=== PATIENT | female | born 1975 | race Caucasian/White ===

== ENCOUNTER 2018-01-16 08:16 | Day surgery (SDC) | payer OTHER ==
[2018-01-16] VITALS (26 sets, daily range): BP systolic 92–121; BP diastolic 48–84; Ht 160 cm; Wt 56.8 kg
[~2018-01-16] VITALS: Ht 160 cm; Wt 56.8 kg
--- NOTE | ~2018-01-16 | OP ---
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 POSTOPERATIVE DIAGNOSES: Disc herniation at C6-7 with C7 radiculopathy bilaterally. PROCEDURE: Anterior cervical discectomy and fusion with PEEK interbody cage, anterior cervical plate and screws. PRIMARY CARE DOCTOR: Dr. Iain Herrera in [place], [place]. DESCRIPTION AND TECHNIQUE: After induction of general endotracheal anesthesia, the patient was positioned supine on the operating table. Neck was prepped and draped in usual sterile fashion. Fluoroscopic x-ray and freer dissector localized the C6-C7 interspace. Following this, an infiltration of 1:100,000 epinephrine and 1% lidocaine was infiltrated in the subcutaneous tissues. A transverse skin incision was carried out from the midline to the sternocleidomastoid muscle. The platysma was divided with Bovie cautery and then using blunt and sharp dissection with Metzenbaum scissors, I proceeded in the avascular plane medial to the carotid sheath. The C6-C7 interspace was identified with fluoroscopic x-ray and a spinal needle. The longus colli muscles were elevated from bodies of C6 and C7. A self-retaining retractor was placed deep to the longus colli muscles. [place] distracting pins were placed in the bodies of C6 and C7. Disc material was removed with pituitary rongeurs and curettes. Posteriorly Midas Sharath drill was used along with a microscope to remove osteophytes. The posterior longitudinal ligament was removed with Cloward rongeurs. Following this, the dura was decompressed well. Both nerve roots were visualized and decompressed well. There was a large disc fragment removed from the hole in the posterior longitudinal ligament during this process. Additional disc material was removed from the neural foramen on the left. Next, a PEEK interbody cage was placed in the disc space under distraction. Prior to this, it was filled with bone stem cell [employer]. A separate anterior cervical plate and screws was used to span the C6-C7 interspace. Locking cams were tightened down over screw heads. Good position of the hardware was confirmed with fluoroscopic x-ray. Meticulous hemostasis was maintained throughout the wound. The wound was irrigated with copious amounts of Ancef irrigant solution. The platysma and subdermal layer were closed with interrupted 3-0 Vicryl suture. The skin was reapproximated with Steri-Strips and benzoin. A sterile dressing was applied to the wound. The patient was awakened in good condition and taken to recovery. All counts reported as correct. Estimated blood loss was minimal. 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
[~2018-01-16 08:16] MED LIST: BACLOFEN20 M1 PO; MOBIC7.5 MG PO; NEURONTIN 300300 MG PO; PERCOCET 7.5/321 TAB
[2018-01-16 08:50] LABS: HEMATOCRIT 35.8 % (36.0-48.0); HEMOGLOBIN 11.5 g/dL (12-16); MCH 27.5 pg (26.0-34.0); MCHC 32.1 g/dL (31.0-37.0); MCV 85.6 fL (80.0-100.0); MEAN PLATELET VOLUME 11.6 fL (7.4-10.4); RBC 4.18 10x6/uL (4.00-5.40); RDW 14.3 % (11.5-14.5); WBC 6.5 10x3/uL (4.8-10.8)
[2018-01-17] VITALS (10 sets, daily range): BP systolic 82–103; BP diastolic 44–65
== END 2018-01-17 10:55 | disposition home or self-care (01) ==
LOC: D.CVICU 08:16 → D.OPS 08:16 → D.PAN 10:15 → D.OPS 10:15 → D.CVICU 14:01 → D.SDCHOLD 16:40 → D.CVICU 16:42 → D.OPS 01-17 10:55
PROVIDERS: Anesthesiology
DX: M50.123 Cervical disc disorder at C6-C7 level with radiculopathy (principal); Z01.812 Encounter for preprocedural laboratory examination